=== PATIENT | male | born 1960 | race Caucasian/White ===

== ENCOUNTER 2017-08-27 09:01 | Emergency (ER) | payer MEDICAID, OTHER ==
[~2017-08-27] VITALS: Ht 190.5 cm; Wt 76.8 kg
[~2017-08-27 09:01] MED LIST: CLIN75CA2 PO; TYL3 PO
[2017-08-27 09:07] VITALS: BP 132/92
--- NOTE | 2017-08-27 09:11 | NUR ---
Patient ambualted to bed 8.
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
[2017-08-27] MEDS ORDERED: KETOROLAC 30 MG/ML VIAL IM ONE (09:40)
[2017-08-27] MEDS ORDERED: CYCLOBENZAPRINE 10 MG TAB PO ONE (09:40)
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
--- NOTE | 2017-08-27 10:39 | NUR ---
Patient discharged with v/s stable. Written and verbal after care instructions given and explained. Patient alert, oriented and verbalized understanding of instructions. Ambulatory with steady gait. All questions addressed prior to discharge. ID band removed. Patient advised to follow up with PMD. Rx of NAPROXEN/FLEXERIL given. Patient educated on indication of medication including possible reaction and side effects. Opportunity to ask questions provided and answered.
[2017-08-27 10:40] VITALS: BP 133/84
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
== END 2017-08-27 10:39 | disposition home or self-care (01) ==
LOC: MED 09:01
DX: G89.29 Other chronic pain (principal); M54.5 Low back pain
CPT/HCPCS: 81002; 96372; 99283; J1885

== ENCOUNTER 2017-11-25 20:08 | Emergency (ER) | payer MEDICAID ==
[~2017-11-25] VITALS: Ht 190.5 cm; Wt 77.1 kg
[2017-11-25 20:29] VITALS: BP 139/90
--- NOTE | 2017-11-25 20:32 | NUR ---
TO LOBBY, MARILU DOTY, A/W BED ERMD NOTED
--- NOTE | 2017-11-25 21:50 | NUR ---
Lavell suresh in [facility] - 11/25/17 at 2241 by JOANNE PATIENT LEFT WITHOUT BEING SEEN BY DR. FERNANDEZ. NO FURTHER CARE PROVIDED FOR PATIENT.
--- NOTE | 2017-11-25 22:00 | NUR ---
Called pt but not in waiting room.
[2017-11-25 22:50] VITALS: BP 139/90
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
--- NOTE | 2017-11-26 00:23 | NUR ---
PATIENT LEFT WITHOUT BEING SEEN BY DR. COLON. NO FURTHER CARE PROVIDED FOR PATIENT.
== END 2017-11-26 00:23 | disposition left against medical advice (07) ==
LOC: MED 20:08
DX: M79.1 Myalgia (principal); Z53.21 Procedure and treatment not carried out due to patient leaving prior to being seen by health care provider

== ENCOUNTER 2018-10-09 20:39 | Emergency (ER) | payer MEDICAID ==
[~2018-10-09] VITALS: Ht 190.5 cm; Wt 77.1 kg
[2018-10-09 20:51] VITALS: BP 123/70
[2018-10-09] MEDS: SULFAMETH/TRIMETH DS 800/160MG 1 TAB PO ONE (21:54)
[2018-10-09] MEDS: CEPHALEXIN 500 MG CAP PO ONE (21:54)
[2018-10-09] MEDS: BACITRACIN OINT 500 UNITS/GM PKT TP ONE (21:57)
[2018-10-09 22:16] VITALS: BP 120/70
== END 2018-10-09 22:16 | disposition home or self-care (01) ==
LOC: MED 20:39
DX: S80.861A Insect bite (nonvenomous), right lower leg, initial encounter (principal); L03.115 Cellulitis of right lower limb; F17.200 Nicotine dependence, unspecified, uncomplicated; Z79.899 Other long term (current) drug therapy; W57.XXXA Bitten or stung by nonvenomous insect and other nonvenomous arthropods, initial encounter; Y93.89 Activity, other specified; Y92.89 Other specified places as the place of occurrence of the external cause; Y99.8 Other external cause status
CPT/HCPCS: 99284

== ENCOUNTER 2019-03-11 16:49 | Emergency (ER) | payer MEDICAID ==
[~2019-03-11] VITALS: Ht 190.5 cm; Wt 77.1 kg
[2019-03-11 16:59] VITALS: BP 127/85
[2019-03-11] MEDS ORDERED: ASPI81EC98 PO (17:04)
--- NOTE | 2019-03-11 17:05 | NUR ---
Note undone in EDM - 03/11/19 at 1752 by MED BIB SELF. AAO X4 C/O LEFT HAND PAIN/TINGLING X 1 YEAR. LEFT HAND REDNESS X 3 DAYS. PT UNABLE TO MAKE FIST WITH LEFT HAND. STRONG PULSE, CAP REFILL <3 SECONDS. DENIES FEVER, SOB, N/V. HOB UP. BED SIDE RAILS UP X1. ON LOW BED POSITION, LOCKED. ER MADE AWARE OF PT STATUS.
--- NOTE | 2019-03-11 17:05 | NUR ---
PATIENT AMBULATED TO BED 1 AT THIS TIME.
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
[2019-03-11] MEDS ORDERED: CEPHALEXIN 500 MG CAP PO ONE (17:20)
[2019-03-11] MEDS ORDERED: SULFAMETH/TRIMETH DS 800/160MG 1 TAB PO ONE (17:20)
[2019-03-11 17:48] VITALS: BP 122/75
== END 2019-03-11 17:49 | disposition home or self-care (01) ==
LOC: MED 16:49
DX: L03.113 Cellulitis of right upper limb (principal); F17.210 Nicotine dependence, cigarettes, uncomplicated; Z79.82 Long term (current) use of aspirin; Z79.899 Other long term (current) drug therapy
CPT/HCPCS: 99283

== ENCOUNTER 2019-09-22 10:41 | Emergency (ER) | payer MEDICAID ==
[~2019-09-22] VITALS: Ht 190.5 cm; Wt 76.7 kg
[~2019-09-22 10:41] MED LIST changes: +ACET-503 PO; +ASPI81EC98 PO; -TYL3 PO
[2019-09-22 10:46] VITALS: BP 122/92
--- NOTE | 2019-09-22 10:50 | NUR ---
PATIENT AMBULATED W/ STEADY GAIT TO BED 6.
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
[2019-09-22] MEDS ORDERED: KETOROLAC 60 MG/2 ML VIAL IM ONE (11:15)
--- NOTE | 2019-09-22 11:21 | NUR ---
dr perea at bedside
[2019-09-22 12:45] VITALS: BP 151/86
--- NOTE | 2019-09-22 12:45 | NUR ---
Patient discharged with v/s stable. Written and verbal after care instructions given and explained. Patient alert, oriented and verbalized understanding of instructions. Ambulatory with steady gait. All questions addressed prior to discharge. ID band removed. Patient advised to follow up with PMD. Rx of Valium 5mg amd Motrin 800mg given. Patient educated on indication of medication including possible reaction and side effects. Opportunity to ask questions provided and answered. Patient given written and verbal discharge instructions and verbalizes understanding. Given list of available shelters in surrounding areas. Pt reports "I'm going to my friend's house."
== END 2019-09-22 12:45 | disposition home or self-care (01) ==
LOC: MED 10:41
DX: M54.2 Cervicalgia (principal); M54.6 Pain in thoracic spine; F17.200 Nicotine dependence, unspecified, uncomplicated; Z79.82 Long term (current) use of aspirin; Z79.899 Other long term (current) drug therapy; Z98.890 Other specified postprocedural states
CPT/HCPCS: 96372; 99283; J1885

== ENCOUNTER 2019-10-04 07:58 | Emergency (ER) | payer MEDICAID ==
[~2019-10-04] VITALS: Ht 190.5 cm; Wt 77.2 kg
[2019-10-04 08:07] VITALS: BP 107/75
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
[2019-10-04] MEDS: PROCHLORPERAZINE 10 MG/2 ML VIAL IVP ONE (09:27)
[2019-10-04] MEDS: NACL 0.9% 1,000 ML IV ONE (09:27)
[2019-10-04] MEDS: KETOROLAC 30 MG/ML VIAL IVP ONE (09:28)
[2019-10-04 10:07] VITALS: BP 115/71
== END 2019-10-04 10:06 | disposition home or self-care (01) ==
LOC: MED 07:58
DX: G43.909 Migraine, unspecified, not intractable, without status migrainosus (principal); Z79.899 Other long term (current) drug therapy
CPT/HCPCS: 96374; 96375; 99283; J0780; J1885

== ENCOUNTER 2020-04-17 16:19 | Emergency (ER) | payer MEDICAID ==
[~2020-04-17] VITALS: Ht 190.5 cm; Wt 74.8 kg
[2020-04-17 16:26] VITALS: BP 104/75
[2020-04-17] MEDS ORDERED: IBUPROFEN 800 MG TAB PO ONE (17:20)
[2020-04-17] MEDS ORDERED: SULFAMETH/TRIMETH DS 800/160MG 1 TAB PO ONE (17:20)
[2020-04-17 17:27] VITALS: BP 104/75
== END 2020-04-17 17:28 | disposition home or self-care (01) ==
LOC: MED 16:19
DX: L03.116 Cellulitis of left lower limb (principal); F03.90 Unspecified dementia, unspecified severity, without behavioral disturbance, psychotic disturbance, mood disturbance, and anxiety; Z79.899 Other long term (current) drug therapy
CPT/HCPCS: 99283

== ENCOUNTER 2020-06-25 17:34 | Emergency (ER) | payer MEDICAID ==
[~2020-06-25] VITALS: Ht 185.4 cm; Wt 78.0 kg
[2020-06-25 17:38] VITALS: BP 111/81
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
--- NOTE | 2020-06-25 18:07 | NUR ---
XRAY AT BEDSIDE
[2020-06-25] MEDS ORDERED: cefTRIAXone 1,000 MG VIAL ONE (18:08)
[2020-06-25] MEDS ORDERED: LIDOCAINE MPF 1% 5 ML ONE (18:09)
[2020-06-25] MEDS ORDERED: cefTRIAXone 1,000 MG in LIDOCAINE MPF 1% 2.1 ML IM ONE (18:10)
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
[2020-06-25 18:50] VITALS: BP 121/74
--- NOTE | 2020-06-25 18:50 | NUR ---
Patient discharged with v/s stable. Written and verbal after care instructions about cellulitis given and explained. Patient alert, oriented and verbalized understanding of instructions. Ambulatory with steady gait. All questions addressed prior to discharge. ID band removed. Patient advised to follow up with PMD. Rx of bactrim, keflex, and ibuprofen given. Patient educated on indication of medication including possible reaction and side effects. Opportunity to ask questions provided and answered.
== END 2020-06-25 18:50 | disposition home or self-care (01) ==
LOC: MED 17:34
DX: L03.115 Cellulitis of right lower limb (principal); F03.90 Unspecified dementia, unspecified severity, without behavioral disturbance, psychotic disturbance, mood disturbance, and anxiety; Z79.82 Long term (current) use of aspirin; Z79.899 Other long term (current) drug therapy
CPT/HCPCS: 73590; 73600; 96372; 99284; J0696; J2001; Q0092

== ENCOUNTER 2020-08-23 13:09 | Emergency (ER) | payer MEDICAID ==
[~2020-08-23] VITALS: Ht 190.5 cm; Wt 56.7 kg
[2020-08-23 13:12] VITALS: BP 125/79
[2020-08-23] MEDS ORDERED: KETOROLAC 60 MG/2 ML VIAL IM ONE (14:10)
[2020-08-23 14:44] VITALS: BP 125/79
== END 2020-08-23 14:45 | disposition home or self-care (01) ==
LOC: MED 13:09
DX: L03.011 Cellulitis of right finger (principal); F03.90 Unspecified dementia, unspecified severity, without behavioral disturbance, psychotic disturbance, mood disturbance, and anxiety; F17.200 Nicotine dependence, unspecified, uncomplicated; Z98.890 Other specified postprocedural states; Z79.899 Other long term (current) drug therapy; Z79.82 Long term (current) use of aspirin
CPT/HCPCS: 96372; 99283; J1885

== ENCOUNTER 2020-09-13 11:33 | Emergency (ER) | payer MEDICAID ==
[~2020-09-13] VITALS: Ht 190.5 cm; Wt 78.2 kg
[2020-09-13 11:59] VITALS: BP 122/70
--- NOTE | 2020-09-13 12:04 | NUR ---
WAIT AT LOBBY.
--- NOTE | 2020-09-13 12:42 | NUR ---
Ambulated to bed 4
--- NOTE | 2020-09-13 13:05 | NUR ---
Dr. Clark is evaluating the patient at bedside.
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
[2020-09-13 13:15] VITALS: BP 122/70
--- NOTE | 2020-09-13 13:15 | NUR ---
Patient discharged with v/s stable. Written and verbal after care instructions given and explained. Patient verbalized understanding. Ambulatory with steady gait. All questions addressed prior to discharge. Advised to follow up with PMD.
== END 2020-09-13 13:15 | disposition home or self-care (01) ==
LOC: MED 11:33
DX: S81.852A Open bite, left lower leg, initial encounter (principal); F17.200 Nicotine dependence, unspecified, uncomplicated; F12.90 Cannabis use, unspecified, uncomplicated; Z79.899 Other long term (current) drug therapy; Z79.82 Long term (current) use of aspirin; W57.XXXA Bitten or stung by nonvenomous insect and other nonvenomous arthropods, initial encounter; Y93.89 Activity, other specified; Y92.89 Other specified places as the place of occurrence of the external cause; Y99.8 Other external cause status
CPT/HCPCS: 99281

== ENCOUNTER 2020-11-25 13:51 | Emergency (ER) | payer MEDICAID ==
[~2020-11-25] VITALS: Ht 190.5 cm; Wt 75.3 kg
[2020-11-25 14:00] VITALS: BP 112/82
[2020-11-25] MEDS ORDERED: SULFAMETH/TRIMETH DS 800/160MG 1 TAB PO ONE (15:00)
[2020-11-25] MEDS ORDERED: cephALEXin 500 MG CAP PO ONE (15:00)
[2020-11-25 15:11] VITALS: BP 112/82
== END 2020-11-25 15:11 | disposition home or self-care (01) ==
LOC: MED 13:51
DX: L03.115 Cellulitis of right lower limb (principal); F15.10 Other stimulant abuse, uncomplicated; Z79.82 Long term (current) use of aspirin; Z79.899 Other long term (current) drug therapy; Z59.0 Homelessness
CPT/HCPCS: 99283

== ENCOUNTER 2021-03-01 14:10 | Emergency (ER) | payer MEDICAID ==
[~2021-03-01] VITALS: Ht 190.5 cm; Wt 81.6 kg
--- NOTE | 2021-03-01 14:41 | NUR ---
Patient assisted to x-ray via w/c.
--- NOTE | 2021-03-01 14:55 | NUR ---
Patient returned to lobby from X-ray via W/C.
--- NOTE | 2021-03-01 15:16 | NUR ---
Lab at bedside in [facility].
[2021-03-01 15:27] VITALS: BP 113/67
--- NOTE | 2021-03-01 15:30 | NUR ---
Dr. Villegas is evaluating patient at bedside.
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
[2021-03-01] MEDS ORDERED: NAPR-54 PO (16:21)
[2021-03-01] MEDS: KETOROLAC 30 MG/ML VIAL IM ONE (16:27)
[2021-03-01 17:50] VITALS: BP 113/67
--- NOTE | 2021-03-01 17:51 | NUR ---
Patient discharged with v/s stable. Written and verbal after care instructions given and explained. Patient alert, oriented and verbalized understanding of instructions. Ambulatory with to car. All questions addressed prior to discharge. ID band removed. Patient advised to follow up with PMD. Rx of NAPROXEN given. Patient educated on indication of medication including possible reaction and side effects. Opportunity to ask questions provided and answered.
== END 2021-03-01 17:51 | disposition home or self-care (01) ==
LOC: MED 14:10
DX: S83.91XA Sprain of unspecified site of right knee, initial encounter (principal); J02.9 Acute pharyngitis, unspecified; F17.210 Nicotine dependence, cigarettes, uncomplicated; F12.90 Cannabis use, unspecified, uncomplicated; Z79.899 Other long term (current) drug therapy; Z79.82 Long term (current) use of aspirin; Z98.890 Other specified postprocedural states; X58.XXXA Exposure to other specified factors, initial encounter; Y93.89 Activity, other specified; Y92.89 Other specified places as the place of occurrence of the external cause; Y99.8 Other external cause status
CPT/HCPCS: 29505; 36415; 73562; 96372; 99283; J1885

== ENCOUNTER 2021-09-15 16:39 | Emergency (ER) | payer MEDICAID, OTHER ==
[~2021-09-15] VITALS: Ht 190.5 cm; Wt 81.2 kg
[~2021-09-15 16:39] MED LIST changes: +NAPR-54 PO
[2021-09-15 17:02] VITALS: BP 126/89
[2021-09-15] MEDS ORDERED: SULFAMETH/TRIMETH DS 800/160MG 1 TAB PO ONE (17:25)
[2021-09-15] MEDS ORDERED: cephALEXin 500 MG CAP PO ONE (17:25)
[2021-09-15] MEDS ORDERED: NAPR-54 PO (17:41)
[2021-09-15] MEDS ORDERED: CEPH-588 PO (17:41)
[2021-09-15] MEDS ORDERED: SULF-59 PO (17:41)
[2021-09-15 17:59] VITALS: BP 126/89
--- NOTE | 2021-09-15 17:59 | NUR ---
Patient discharged with v/s stable. Written and verbal after care instructions given and explained. Patient alert, oriented and verbalized understanding of instructions. Ambulatory with steady gait. All questions addressed prior to discharge. ID band removed. Patient advised to follow up with PMD. Rx of CEPHALEXIN, NAPROXEN, BACTRIM given. Patient educated on indication of medication including possible reaction and side effects. Opportunity to ask questions provided and answered.
== END 2021-09-15 17:59 | disposition home or self-care (01) ==
LOC: MED 16:39
DX: L03.113 Cellulitis of right upper limb (principal); F17.210 Nicotine dependence, cigarettes, uncomplicated; Z79.899 Other long term (current) drug therapy; Z79.82 Long term (current) use of aspirin
CPT/HCPCS: 99283

== ENCOUNTER 2022-08-31 00:25 | Emergency (ER) | payer MEDICAID, OTHER ==
[~2022-08-31] VITALS: Ht 190.5 cm; Wt 77.1 kg
[~2022-08-31 00:25] MED LIST changes: +CEPH-588 PO; +SULF-59 PO
[2022-08-31 00:30] VITALS: BP 139/90
--- NOTE | 2022-08-31 00:30 | NUR ---
TO BED AMBULATORY
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
[2022-08-31] MEDS ORDERED: LIDOCAINE/EPI 2% 1:100000 20 ML VIAL INJ ONE (01:15)
--- NOTE | 2022-08-31 01:45 | NUR ---
SUTURE SET UP AT BEDSIDE.
--- NOTE | 2022-08-31 01:53 | NUR ---
DR LUCIANO AT BEDSIDE PERFORMING I & D.
[2022-08-31 02:00] VITALS: BP 141/70
[2022-08-31] MEDS ORDERED: SULF-59 PO (02:08)
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
--- NOTE | 2022-08-31 02:55 | NUR ---
Patient discharged with v/s stable. Written and verbal after care instructions given and explained. Patient alert, oriented and verbalized understanding of instructions. Ambulatory with steady gait. All questions addressed prior to discharge. ID band removed. Patient advised to follow up with PMD. Rx SENT TO PHARMACY. Patient educated on indication of medication including possible reaction and side effects. Opportunity to ask questions provided and answered.
== END 2022-08-31 02:55 | disposition home or self-care (01) ==
LOC: MED 00:25
DX: L02.413 Cutaneous abscess of right upper limb (principal); Z98.890 Other specified postprocedural states; Z79.2 Long term (current) use of antibiotics; Z79.1 Long term (current) use of non-steroidal anti-inflammatories (NSAID); Z79.82 Long term (current) use of aspirin; Z79.899 Other long term (current) drug therapy
CPT/HCPCS: 10060; 99284; J2001

== ENCOUNTER 2023-07-08 16:17 | Emergency (ER) | payer MEDICAID ==
[~2023-07-08] VITALS: Ht 190.5 cm; Wt 77.1 kg
[2023-07-08 16:25] VITALS: BP 121/88; PULSE 99; RESP 17; TEMP 97.9; O2SAT 97
[2023-07-08] MEDS ORDERED: SULF-58 PO (16:37)
== END 2023-07-08 16:42 | disposition home or self-care (01) ==
LOC: MED 16:17
DX: L03.116 Cellulitis of left lower limb (principal); Z79.899 Other long term (current) drug therapy
CPT/HCPCS: 99281

== ENCOUNTER 2023-09-29 05:18 | Emergency (ER) | payer MEDICAID ==
[~2023-09-29] VITALS: Ht 190.5 cm; Wt 77.1 kg
[~2023-09-29 05:18] MED LIST changes: +SULF-58 PO
[2023-09-29 05:20] VITALS: BP 109/72; PULSE 93; RESP 18; TEMP 97.9; O2SAT 98
[2023-09-29] MEDS ORDERED: CEPH500C16 PO (06:24)
[2023-09-29] MEDS ORDERED: SULF-58 PO (06:24)
[2023-09-29 07:15] VITALS: BP 109/72; PULSE 93; RESP 18; TEMP 97.9; O2SAT 98
== END 2023-09-29 07:15 | disposition home or self-care (01) ==
LOC: MED 05:18
DX: L03.114 Cellulitis of left upper limb (principal); Z79.899 Other long term (current) drug therapy
CPT/HCPCS: 99282